=== PATIENT | male | born 1945 | race Caucasian/White ===

== ENCOUNTER → 2023-12-01 | Outpatient (BNVA) | payer MEDICARE, BC, SELFPAY | END | disposition home or self-care (01) | PROVIDERS: PCP Family Medicine; Referring Provider Family Medicine; Visit Provider Urology | DX: Z76.89 Persons encountering health services in other specified circumstances (principal) | CPT/HCPCS: 99212; G0463 ==

== ENCOUNTER → 2024-02-05 | Outpatient (BNVA) | payer MEDICARE, BC, SELFPAY | END | disposition home or self-care (01) | PROVIDERS: PCP Family Medicine; Referring Provider Family Medicine; Visit Provider Urology | DX: N40.1 Benign prostatic hyperplasia with lower urinary tract symptoms (principal); N13.8 Other obstructive and reflux uropathy; N20.2 Calculus of kidney with calculus of ureter; I10 Essential (primary) hypertension; I25.10 Atherosclerotic heart disease of native coronary artery without angina pectoris; Z95.5 Presence of coronary angioplasty implant and graft; E66.9 Obesity, unspecified; Z68.30 Body mass index [BMI] 30.0-30.9, adult; I25.2 Old myocardial infarction | CPT/HCPCS: 81003; 99212; G0463 ==

== ENCOUNTER → 2024-02-23 | Outpatient (CLI) | payer MEDICARE, BC, SELFPAY ==
--- NOTE | 2024-02-23 08:53 | XR_ITS ---
Examination: PA lateral chest 2 views TECHNIQUE: Upright PA lateral chest 2 views Exam date and time: February 23, 2024 0905 hours INDICATIONS: Preop, history myocardial infarctions, cardiac stents, aortic aneurysm surgery, hypertension history FINDINGS: No significant cardiac enlargement Ectatic thoracic aorta No pneumonia or pulmonary edema Diffuse [id number] thoracic degenerative disc disease IMPRESSION: No active disease
[2024-02-23 09:38] LABS: Collection Type, Urine Clean Catch; Squamous Epithelial Cell,Urine 0 /hpf (0-5)
[2024-02-23 10:24] LABS: Basophils % (Auto) 0 % (0-2.5); Eosinophils # (Auto) 0.1 Thou/mm3 (0.0-0.5); Eosinophils % (Auto) 2 % (0-10); Hematocrit 37.5 % (41.0-53.0); Hemoglobin 12.1 g/dL (13.5-16.0); Immature Granulocytes % (Auto) 0 % (0-0); Immature Granulocytes Auto 0.02 Thou/mm3 (0.00-0.00); Lymphocytes # (Auto) 1.7 Thou/mm3 (1.0-4.8); Lymphocytes % (Auto) 27 % (10-50); Mean Corpuscular HGB Conc 32.3 g/dl (31.0-37.0); Mean Corpuscular Hemoglobin 27.5 pg (25.0-35.0); Mean Corpuscular Volume 85 fL (80-100); Monocytes # (Auto) 0.6 Thou/mm3 (0.0-0.8); Monocytes % (Auto) 9 % (0-12); Neutrophils # (Auto) 3.9 Thou/mm3 (1.8-7.7); Neutrophils % (Auto) 62 % (37-80); Nucleated Red Blood Cell % 0 /100 WBC (0); Platelet Count 207 Thou/mm3 (140-440); RDW Standard Deviation 48.1 fL (35.1-43.9); White Blood Count 6.4 Thou/mm3 (3.8-10.6)
[2024-02-23 10:28] LABS: INR 1.1 (0.9-1.3); Partial Thromboplastin Time 28.1 Seconds (22.0-36.0); Prothrombin Time 11.5 Seconds (9.0-12.2)
[2024-02-23 10:33] LABS: Bilirubin,Urine Negative (Negative); Blood,Urine Negative (Negative); Clarity,Urine Clear (Clear/Hazy); Color,Urine Lt-Yellow (Lt Yel-Yel); Glucose, Urine Negative (Negative); Ketones,Urine Negative (Negative); Leukocyte Esterase,Urine Positive (Negative); Nitrite,Urine Negative (Negative); PH,Urine 6.5 (5.0-7.0); Protein,Urine Negative (Neg - Trace); RBC,Urine 4 /hpf (0-3); Urobilinogen,Urine Negative mg/dL (0.0-1.0); WBC,Urine 28 /hpf (0-5)
[2024-02-23 10:40] LABS: Glucose Estimated Average 108 mg/dL (80-131); Hemoglobin A1C 5.4 % Hgb (4.8-6.0)
[2024-02-23 10:48] LABS: Culture Indicated,Urine Yes
[2024-02-23 10:57] LABS: Alanine Aminotransferase 16 U/L (10-49); Albumin, Serum 4.2 gm/dL (3.4-4.8); Albumin/Globulin Ratio 1.5 (1.2-2.2); Alkaline Phosphatase 99 U/L (46-116); Anion Gap 7 (7-16); Aspartate Amino Transferase 17 U/L (0-34); BUN/Creatinine Ratio 14 Ratio (12-20); Blood Urea Nitrogen 17 mg/dL (9-23); Calcium 9.6 mg/dL (8.3-10.6); Calcium (Corrected) 9.6 mg/dL (8.5-10.1); Carbon Dioxide 27.3 mMol/L (20.0-31.0); Cardiac Risk Estimate 2.9 RATIO (4.0-6.7); Chloride 103 mMol/L (98-107); Cholesterol 115 mg/dL (132-200); Creatinine (Component) 1.2 mg/dL (0.6-1.3); Globulin 2.8 gm/dL (2.3-3.5); Glucose 93 mg/dL (74-106); HDL Cholesterol 39 mg/dL (40-60); LDL Cholesterol,Calculated 64 mg/dL (0-130); Osmolality,Calculated 275 (275-295); PSA Medicare Annual Scrn 1.14 ng/mL (0-4.00); Potassium 4.5 mMol/L (3.4-5.1); Sodium 137 mMol/L (136-145); Triglycerides 58 mg/dL (30-150); eGFR > 60 See Note
== END | disposition home or self-care (01) ==
PROVIDERS: PCP Internal Medicine; Referring Provider Internal Medicine; Visit Provider Internal Medicine
DX: R05.9 Cough, unspecified (principal); R73.03 Prediabetes; I25.810 Atherosclerosis of coronary artery bypass graft(s) without angina pectoris; E78.5 Hyperlipidemia, unspecified; Z01.818 Encounter for other preprocedural examination
CPT/HCPCS: 36415; 71046; 80053; 80061; 81001; 83036; 84153; 85025; 85610; 85730; 87077; 87086; 87186; G0103

== ENCOUNTER → 2024-04-22 | Outpatient (BNVA) | payer MEDICARE, BC, SELFPAY | END | disposition home or self-care (01) | PROVIDERS: PCP Internal Medicine; Referring Provider Internal Medicine; Visit Provider Urology | DX: N28.9 Disorder of kidney and ureter, unspecified (principal); Z87.442 Personal history of urinary calculi; Z46.6 Encounter for fitting and adjustment of urinary device; I10 Essential (primary) hypertension; I25.2 Old myocardial infarction | CPT/HCPCS: 96372; 99212; J1580; G0463 ==

== ENCOUNTER → 2024-05-24 | Outpatient (CLI) | payer MEDICARE, BC, SELFPAY ==
[2024-05-24 10:47] LABS: Blood Urea Nitrogen 23 mg/dL (9-23); Creatinine (Component) 1.4 mg/dL (0.6-1.3); eGFR 51 See Note
== END | disposition home or self-care (01) ==
PROVIDERS: PCP Urology; Referring Provider Urology; Visit Provider Urology
DX: N20.0 Calculus of kidney (principal)
CPT/HCPCS: 36415; 82565; 84520

== ENCOUNTER → 2024-05-28 | Outpatient (CLI) | payer MEDICARE, BC, SELFPAY ==
--- NOTE | 2024-05-28 10:00 | XR_ITS ---
Examination: CT abdomen and pelvis without contrast. Coronal 3-D reconstructions. Sagittal 2-D reconstructions. Date and time of exam:May 28, 2024 0950 hrs. Comparison 10/26/2023 Indications: Infrarenal abdominal aortic aneurysm, mediolateral dimension 11 cm AP dimension 8.6 cm cephalad caudad dimension 13.[address] abdomen pelvis October 26, 2023, history advanced left hydronephrosis CTDI: vol (mGy): 9.13 DLP: (mGycm): 596 Technique: Axial images of the abdomen have been obtained, 3 mm slice thickness Intravenous contrast material has not been administered. Low dose protocols were performed. One or more of the following dose reduction techniques were used; automated exposure control, adjustment of the mA and/or KV according to patient size, use of iterative reconstruction technique. 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
== END | disposition home or self-care (01) ==
LOC: CCTX 09:38
PROVIDERS: PCP Internal Medicine; Referring Provider Urology; Visit Provider Urology
DX: I71.43 Infrarenal abdominal aortic aneurysm, without rupture (principal)
CPT/HCPCS: 74176

== ENCOUNTER → 2024-05-30 | Outpatient (CLI) | payer MEDICARE, BC, SELFPAY ==
[2024-05-30 10:36] LABS: Blood Urea Nitrogen 21 mg/dL (9-23); Creatinine (Component) 1.2 mg/dL (0.6-1.3); eGFR > 60 See Note
== END | disposition home or self-care (01) ==
LOC: COPL 09:24
PROVIDERS: PCP Internal Medicine; Referring Provider Surgery Vascular Surgery; Visit Provider Surgery Vascular Surgery
DX: I71.43 Infrarenal abdominal aortic aneurysm, without rupture (principal)
CPT/HCPCS: 36415; 82565; 84520

== ENCOUNTER → 2024-06-06 | Outpatient (CLI) | payer MEDICARE, BC, SELFPAY ==
--- NOTE | 2024-06-06 11:00 | XR_ITS ---
Examination: CTA abdominal aorta iliofemoral runoff. 2-D sagittal coronal reconstructions. 3-D reconstructions, vascular June 06, 2024 1120 hours INDICATIONS: Diagnosis infrarenal abdominal aortic aneurysm, mediolateral dimension 10 cm AP dimension 7.[address] abdomen pelvis May 28, 2024 Technique: Multiple CTA images of the abdominal aorta iliofemoral runoff arterial vessels, 2.0 mm slice thickness, post intravenous administration 80 cc [id number] 2-D sagittal coronal reconstructions 3-D reconstructions, low dose protocols, 3-D processing, adjustment MA KV according to patient size liver mildly irregular in contour Fatty infiltration throughout the liver No gallstones 14 mm probable splenic cyst No pancreatic mass Absent left kidney Lower pole right renal calculi, 7 mm, 8 mm Infrarenal abdominal aortic aneurysm Patent aortoiliac stent Mediolateral dimension aorta 10 cm AP dimension 7 cm, bulge of the posterior right margin of the aorta again noted measuring 30 mm in transverse dimension and 12 mm in AP dimension, no free blood in the abdomen External iliac common femoral arteries intact Superficial femoral arteries intact Contrast bolus timing error with no significant opacification popliteal right trifurcation arteries Poor opacification of left popliteal artery with 37 x 30 mm popliteal artery aneurysm No diagnostic filling of the left trifurcation vessels IMPRESSION: Patent aortoiliac stent Infrarenal abdominal aorta mediolateral dimension 10 cm AP dimension 7 cm Localized bulge in the posterior right lateral margin of the aneurysm 30 mm in transverse dimension, 12 mm in AP dimension 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
== END | disposition home or self-care (01) ==
LOC: CCTX 10:32
PROVIDERS: PCP Internal Medicine; Referring Provider Surgery Vascular Surgery; Visit Provider Surgery Vascular Surgery
DX: I72.4 Aneurysm of artery of lower extremity (principal)
CPT/HCPCS: 75635; A4649; Q9967

== ENCOUNTER → 2024-10-25 | Outpatient (BNVA) | payer MEDICARE, BC, SELFPAY | END | disposition home or self-care (01) | PROVIDERS: PCP Internal Medicine; Referring Provider Internal Medicine; Visit Provider Urology | DX: N20.0 Calculus of kidney (principal); N40.1 Benign prostatic hyperplasia with lower urinary tract symptoms; N13.8 Other obstructive and reflux uropathy; I10 Essential (primary) hypertension; I25.10 Atherosclerotic heart disease of native coronary artery without angina pectoris; I25.2 Old myocardial infarction | CPT/HCPCS: 81003; 99212; G0463 ==